=== PATIENT | female | born 1935 | race Caucasian/White ===

== ENCOUNTER → 2023-05-18 12:09 | Outpatient (CLI) | payer MEDICARE, SELFPAY ==
--- NOTE | 2023-05-18 | DI.MRI.S_ITS ---
PROCEDURE: MR ABDOMEN WO/W CON INDICATIONS: ABNORMAL PANCREATIC CT TECHNIQUE: Coronal HASTE, axial 2D FLASH in- and [id number]; axial breath-hold T2 FSE with fat saturation from the hepatic dome to the iliac crests. Oblique coronal thin-slice and radial thick slab HASTE through the biliary system. Dynamic axial VIBE during administration of contrast. Post-contrast coronal VIBE or 2D FLASH with fat saturation from the hepatic dome to the iliac crests. Optional diffusion weighted imaging and ADC may be performed. COMPARISON: [facility], RG, CT ABDOMEN/PELVIS WITH CONTRAST, 02/10/2023, 10:56. FINDINGS: Image quality: Excellent. Liver: No solid mass. Punctate, T2 hyperintense cystic lesions, which are benign. Gallbladder and biliary tree: Cholelithiasis without wall thickening or adjacent fat stranding to suggest acute cholecystitis. Spleen: Normal size. Pancreas: In the pancreatic body, there is a 2.4 centimeter T2 hyperintense cystic lesion with connection to the pancreatic duct and containing a thin internal septation. No associated nodularity or ductal dilation. The pancreas is relatively atrophic. Adrenal glands: No adrenal nodules. Kidneys: No hydronephrosis. No solid mass. No complex renal cysts which requires follow-up. Nodes and vessels: No retroperitoneal or mesenteric adenopathy by size criteria. Aorta and inferior vena cava are normal in size. Bowel and peritoneum: Unenhanced bowel loops are normal in caliber throughout. No free fluid. Lung bases: No basal pleural effusions. Heart size is normal. Bones and soft tissues: No ventral hernias. Bone marrow is normal in overall signal. 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 No suspicious features at this time. Consider GI referral for further management. Cholelithiasis without wall thickening or adjacent fat stranding to suggest acute cholecystitis. Dictated by: Mitesh Maria M.D. on 05/19/2023 at 9:09 Approved by: Mitesh Maria M.D. on 05/19/2023 at 9:15
== END ==
PROVIDERS: Referring Provider Registered Nurse; Visit Provider Registered Nurse
DX: K86.89 Other specified diseases of pancreas (principal); K80.20 Calculus of gallbladder without cholecystitis without obstruction
CPT/HCPCS: 74183; A9579